=== PATIENT | female | born 1995 | race Caucasian/White ===

== ENCOUNTER 2017-07-08 14:05 | Emergency (ER) | payer OTHER, BC ==
[2017-07-08] MEDS ORDERED: HYDROcodone/ACETAMIN 5-325 MG* 1 TAB PO ONE (16:05)
--- NOTE | 2017-07-08 16:06 | UC ---
Lower Extremity/Ankle HPI - HPI Summary HPI Summary: fell on porch step 2 days ago hitting left lower leg-large contusion front of leg just below knee tender to touch - History of Current Complaint Chief Complaint: UCLowerExtremity Stated Complaint: LEFT LEG PAIN Time Seen by Provider: 07/08/17 15:58 Hx Obtained From: Patient Hx Last Menstrual Period: 2 WKS ?: No Onset/Duration: Sudden Onset, Lasting Days - 2, Still Present Severity Initially: Moderate Severity Currently: Moderate Pain Intensity: 7 Pain Scale Used: 0-10 Numeric Alleviating Factor(s): Rest, Elevation, Ice Able to Bear Weight: Yes - Allergies/Home Medications Allergies/Adverse Reactions: Allergies Allergy/AdvReac Type Severity Reaction Status Date / Time Penicillins Allergy Hives Verified 07/08/17 14:20 Home Medications: Home Medications Ibuprofen TAB* [Advil TAB*] 600 mg PO Q6H PRN 07/08/17 [History Confirmed ] Norethin Acet & Estrad-Fe [Loestrin Fe 11/10 1-20 mg-Mcg] 1 tab PO DAILY [History Confirmed 07/08/17] PMH/Surg Hx/FS Hx/Imm Hx Previously Healthy: Yes - Surgical History Surgical History: Yes Surgery Procedure, Year, and Place: APPY. OVARIAN CYST. T&A - Family History Known Family History: Positive: None - Social History Occupation: Student Lives: With Family Alcohol Use: Weekly Substance Use Type: None Smoking Status (MU): Never Smoked Tobacco Review of Systems Constitutional: Negative Skin: Negative Eyes: Negative ENT: Negative Respiratory: Negative Cardiovascular: Negative Gastrointestinal: Negative Genitourinary: Negative Motor: Negative Neurovascular: Negative Musculoskeletal: Negative Neurological: Negative Psychological: Negative Is Patient Immunocompromised?: No All Other Systems Reviewed And Are Negative: Yes Physical Exam Triage Information Reviewed: Yes Appearance: Well-Appearing, No Pain Distress, Well-Nourished Vital Signs: Initial Vital Signs Temp 99 F 07/08/17 14:13 Pulse 65 07/08/17 14:13 Resp 18 07/08/17 14:13 BP 122/73 07/08/17 14:13 Pulse Ox 100 07/08/17 14:13 Vital Signs Reviewed: Yes Eye Exam: Normal Eyes: Positive: Conjunctiva Clear ENT Exam: Normal ENT: Positive: Normal ENT inspection, Hearing grossly normal. Negative: Nasal congestion, Nasal drainage, Trismus, Muffled/hoarse voice Dental Exam: Normal Neck exam: Normal Neck: Positive: Supple, Nontender Respiratory Exam: Normal Respiratory: Positive: Chest non-tender, Lungs clear, Normal breath sounds, No respiratory distress, No accessory muscle use Cardiovascular Exam: Normal Cardiovascular: Positive: RRR, No Murmur, Pulses Normal, Brisk Capillary Refill Bowel Sounds: Positive: Present Musculoskeletal Exam: Normal Musculoskeletal: Positive: Strength Intact, ROM Intact, No Edema Neurological Exam: Normal Neurological: Positive: Alert, Muscle Tone Normal Psychological Exam: Normal Skin Exam: Normal Skin: Positive: Other - 15cm contusion proximal left lower leg Diagnostics - Radiology No standard instances Xray Interpretation: No Acute Changes Radiology Interpretation Completed By: Radiologist Lower Extremity Course/Dx - Course Course Of Treatment: Ruy wrap,rice, pain med follow with ortho if fails to resolved in 3-4 days - Differential Dx/Diagnosis Differential Diagnosis/HQI/PQRI: Contusion, Fracture (Closed), Sprain, Strain Provider Diagnoses: Contusion left lower extremity Discharge - Discharge Plan Condition: Stable Disposition: HOME Prescriptions: Hydrocodone-Acetaminophen [Hydrocodone/Acetaminophen 5-325 mg] 1 tab PO Q6HR PRN #8 tab MDD 4 PRN Reason: Pain Patient Education Materials: Ibuprofen (By mouth), Contusion in Adults (ED), RICE Therapy (ED) Referrals: [facility] [place] PHYSICIAN REFERRAL [Outside] - If Needed
[2017-07-08 16:15] VITALS: BP 124/85
--- NOTE | 2017-07-08 16:40 | RAD ---
Indication: LEFT lower leg pain and swelling post fall Sunday. Comparison: No relevant prior exams available on the [facility] [place] [facility] for comparison. Technique: AP and lateral views LEFT lower leg. Report: Negative for fracture of the tibia or fibula. Normal articular alignment. Unremarkable soft tissue contours. IMPRESSION: No radiographic evidence for LEFT lower leg injury.
== END 2017-07-08 16:55 | disposition home or self-care (01) ==
LOC: UCCORT 14:05
DX: S80.12XA Contusion of left lower leg, initial encounter (principal); W19.XXXA Unspecified fall, initial encounter; Y93.9 Activity, unspecified; Y92.89 Other specified places as the place of occurrence of the external cause; Z88.0 Allergy status to penicillin
CPT/HCPCS: 99202; G0463

== ENCOUNTER 2018-03-03 08:41 | Emergency (ER) | payer BC, OTHER ==
[2018-03-03 09:15] VITALS: BP 132/79
[2018-03-03] MEDS ORDERED: Ketorolac INJ* 60 MG/2 ML VIAL IM ONE (10:19)
--- NOTE | 2018-03-03 10:26 | UC ---
Throat Pain/Nasal Omid HPI - HPI Summary HPI Summary: Pt here w/ Rt swollen tonsil and enlarged lymph nodes on Rt for the past 3-4 days. Feels like she has trouble breathing, pain with swallowing. Pain from neck radiates to ear on this side. Denies fever, chills, nausea, vomiting, neck stiffness, chest pain, SOB. She has a history of having her tonsils shaved in 2013 and adenoids removed. She is concerned that she has strep. On OBC and uses condoms. Has 1 fallopian tube and told she has extremely low risk of . Offered test today - she reports "I'm positive I'm not " and declines testing. - History of Current Complaint Hx Obtained From: Patient Hx Last Menstrual Period: on control Pain Intensity: 7 <Emily Singh - Last Filed: 03/03/18 10:27> <Jessica Douglas - Last Filed: 03/03/18 10:50> - History of Current Complaint Chief Complaint: UCGeneralIllness Stated Complaint: SORE THROAT Time Seen by Provider: 03/03/18 09:57 - Allergies/Home Medications Allergies/Adverse Reactions: Allergies Allergy/AdvReac Type Severity Reaction Status Date / Time Penicillins Allergy Hives Verified 03/03/18 09:15 Home Medications: Home Medications Norethindr/Eth Estradiol(Nf) [Lo Loestrin Fe (NF)] 1 tab PO DAILY 03/03/18 [ History Confirmed 03/03/18] PMH/Surg Hx/FS Hx/Imm Hx Previously Healthy: Yes - Surgical History Surgical History: Yes Surgery Procedure, Year, and Place: APPY. OVARIAN CYST. T&A - Family History Known Family History: Positive: None - Social History Alcohol Use: Weekly Substance Use Type: None Smoking Status (MU): Never Smoked Tobacco <Emily iSngh - Last Filed: 03/03/18 10:27> Review of Systems Constitutional: Negative Skin: Negative Eyes: Negative ENT: Sore Throat, Ear Ache Respiratory: Negative Cardiovascular: Negative Gastrointestinal: Negative Motor: Negative Neurovascular: Negative Musculoskeletal: Negative Neurological: Negative Psychological: Anxious Is Patient Immunocompromised?: No All Other Systems Reviewed And Are Negative: Yes <Emily Singh - Last Filed: 03/03/18 10:27> Physical Exam Triage Information Reviewed: Yes Appearance: Well-Appearing - anxious, tearful when discussing her condition as well as possible need for I&D as she reports she "has already been through so much (medically)", Well-Nourished Vital Signs: Initial Vital Signs Temp 98.3 F 03/03/18 09:11 Pulse 82 03/03/18 09:11 Resp 14 03/03/18 09:11 BP 132/79 03/03/18 09:11 Pulse Ox 100 03/03/18 09:11 Vital Signs Reviewed: Yes Eye Exam: Normal Eyes: Positive: Conjunctiva Clear ENT: Positive: TMs normal, Tonsillar swelling - Rt tonsil erythematous (beefy), and edematous as well as soft palate and arch here, Tonsillar exudate, Muffled voice. Negative: Nasal congestion, Trismus, Hoarse voice, Sinus tenderness, Uvula midline Dental: Negative: Abscess @ Neck: Positive: Supple, Tenderness @ - Rt submandibular region full and TTP Respiratory Exam: Normal Respiratory: Positive: Chest non-tender, Lungs clear, Normal breath sounds. Negative: Stridor Cardiovascular Exam: Normal Cardiovascular: Positive: RRR Abdominal Exam: Normal Musculoskeletal Exam: Normal Musculoskeletal: Positive: Strength Intact Neurological Exam: Normal Neurological: Positive: Alert, Muscle Tone Normal Psychological Exam: Other - anxious, tearful Skin Exam: Normal <Emily Singh - Last Filed: 03/03/18 10:27> Vital Signs: Initial Vital Signs Temp 98.3 F 03/03/18 09:11 Pulse 82 03/03/18 09:11 Resp 14 03/03/18 09:11 BP 132/79 03/03/18 09:11 Pulse Ox 100 03/03/18 09:11 <Jessica Douglas - Last Filed: 03/03/18 10:50> Re-Evaluation - Re-Evaluation First Eval Change: Improved - upon re-evaluation of the area, she has copious purulent drainage from the area - voice improved and she notes reduced pain/swelling <Emily Singh - Last Filed: 03/03/18 10:27> Throat Pain/Nasal Course/Dx - Course Course Of Treatment: Peritonsilar Rt sided abscess that spontaneously started draining during visit. Pt reports improvement in sx and agrees to tx of strep, inflammation and close f/u tomorrow w/ Dr. Moore. If worse in the meantime, she will go to ED. - Differential Dx/Diagnosis Provider Diagnoses: Right peritonsilar abscess <Emily Singh - Last Filed: 03/03/18 10:27> Discharge - Sign-Out/Discharge Documenting (check all that apply): Discharge/Admit/Transfer - Billing Disposition and Condition Condition: STABLE Disposition: HOME <Emily Singh - Last Filed: 03/03/18 10:27> - Billing Disposition and Condition Condition: STABLE Disposition: HOME <Jessica Douglas - Last Filed: 03/03/18 10:50> - Discharge Plan Condition: Stable Disposition: HOME Prescriptions: Clindamycin HCl 300 mg PO TID #30 capsule predniSONE TAB* [Deltasone TAB*] 40 mg PO DAILY #10 tab Patient Education Materials: Peritonsillar Abscess (ED) Referrals: Anibal Moore MD [Medical Doctor] - Additional Instructions: You appear to have a right sided peristonsilar abscess that is draining. You tested positive for strep so you will be started on an antibiotic. Additionally , you were prescribed a steroid for inflammation. Complete the course of medications and follow-up with ENT provider, Dr. Moore, tomorrow. Call in the morning to schedule an appointment. In the meantime, you may use warm salt water gargles and warm compresses to encourage drainage. Stay hydrated with fluids (ie. water, gatorade, juice, soup broth, etc). You may take ibuprofen 800 mg every 8 hours with food as needed for pain - if having difficulty swallowing, use liquid ibuprofen. If you develop fever, headache, neck stiffness, trouble breathing or swallowing , go to the ED Attestation Statement Provider Attestation: I was available for consult. This patient was seen by the LEAH. The patient was not presented to, seen by, or examined by me. -Belinda <Jessica Douglas - Last Filed: 03/03/18 10:50>
== END 2018-03-03 10:40 | disposition home or self-care (01) ==
LOC: UCCORT 08:41
DX: J36 Peritonsillar abscess (principal); J02.0 Streptococcal pharyngitis; Z88.0 Allergy status to penicillin
CPT/HCPCS: 87651; 96372; 99212; G0463; J1885